=== PATIENT | male | born 1985 | race Caucasian/White ===

== ENCOUNTER 2018-07-30 13:23 | Emergency (ER) | payer SELFPAY ==
[~2018-07-30] VITALS: Wt 62.0 kg
[~2018-07-30 13:23] MED LIST: ACET500C5 PO; IBUP-1561 PO; LORA1TAB54 PO; PROM6.25 PO
[2018-07-30] MEDS ORDERED: ALPRAZOLAM 0.25 MG TAB PO ONE (14:00)
--- NOTE | 2018-07-30 14:01 | ERD ---
ER Documentation Chief Complaint Chief Complaint PALPITATIONS ONSET 1 HR AGO HPI This is a 32-year-old male who has a history of anxiety who claims that the past 2 months he is having more anxiety attacks than usual. He is taking BuSpar currently. He said today he had a typical anxiety attack where he suddenly bec can anxious with palpitations, sense of impending doom with tremors. No chest pain or difficulty breathing. He said now he feels much better now ROS All systems reviewed and are negative except as per history of present illness. Medications Home Meds Active Scripts Acetaminophen* (Tylophen*) 500 Mg Capsule, 1 CAP PO Q4 PRN for PAIN AND OR ELEVATED TEMP, #20 CAP Prov:JONATHAN HUFFMAN PA-C 05/26/15 Ibuprofen* (Motrin*) 400 Mg Tab, 400 MG PO Q6H PRN for PAIN AND OR ELEVATED TEMP, #30 TAB Prov:JONATHAN HUFFMAN PA-C 05/26/15 Loratadine/Pseudoephedrine* (Claritin-D* 12 Hr) 5-120 Mg Tab.er.12h, 1 TAB PO Q12, #14 TAB.SA Prov:JONATHAN HUFFMAN PA-C 05/26/15 Promethazine w/Codeine* (Phenergan w/Codeine* Syrup) 5 Ml Syrup, 5-10 ML PO Q4H PRN for COUGH, #200 ML Prov:JONATHAN HUFFMAN PA-C 05/26/15 Allergies Allergies: Coded Allergies: No Known Allergy (Unverified , 05/26/15) PMhx/Soc Medical and Surgical Hx: pt denies Surgical Hx Hx Psychiatric Problems: Yes (anxiety) Hx Miscellaneous Medical Probl: Yes Hx Alcohol Use: No Hx Substance Use: No Hx Tobacco Use: No Smoking Status: Never smoker FmHx Family History: No coronary disease Physical Exam Vitals Vital Signs Date Temp Pulse Resp B/P (MAP) Pulse Ox O2 O2 Flow FiO2 Time Delivery Rate 07/30/18 98.1 140 18 139/75 99 13:26 (96) Physical Exam Const: Well-developed, well-nourished Head: Atraumatic, normocephalic Eyes: Normal Conjunctiva, PERRLA, EOMI, normal sclera, no nystagmus ENT: Normal External Ears, Nose and Mouth, moist mucus membranes. Neck: Full range of motion. No meningismus, no lymphadenopathy. Resp: Clear to auscultation bilaterally, no wheezing, rhonchi, rales Cardio: Regular rate and rhythm, no murmurs, S1 S2 present Abd: Soft, non tender x 4, non distended. Normal bowel sounds, no guarding or rebound, no pulsitile abdominal masses or bruits Skin: No petechiae or rashes, no ecchymosis , no maculopapular rash Back: No midline or flank tenderness Ext: No cyanosis, or edema, FROM x 4, normal inspection, neurovascularly intact x 4 Neur: Awake and alert, STR 5/5 x 4, sensation intact x 4, no focal findings, cerebellum intact Psych: Normal Mood and Affect Results 24 hrs Current Medications Medications Dose Sig/Anderson Start Time Status Last (Trade) Ordered Route PRN Stop Time Admin Dose Reason Admin Alprazolam 0.5 mg ONCE ONCE 07/30/18 (Xanax) PO 14:00 07/30/18 14:01 Procedures/MDM EKG: Rate/Rhythm: Sinus tachycardia heart rate 148 QRS, ST, QT: NORMAL ME, QRS, QT] Impression: Sinus tachycardia Heart rate on exam is 86. Patient is having typical anxiety attacks he is Zachery taking BuSpar will provide him with a prescription for Xanax for exacerbations Departure Diagnosis: Primary Impression: Anxiety Condition: Stable RENATO OLEARY DO Jul 30, 2018 14:01
[2018-07-30] MEDS ORDERED: ALPR0.5T PO (14:02)
[2018-07-30 15:00] VITALS: BP 115/71; PULSE 88; RESP 16
== END 2018-07-30 15:20 | disposition home or self-care (01) ==
LOC: E/R 13:23
DX: F41.9 Anxiety disorder, unspecified (principal)